=== PATIENT | female | born 1960 | race Caucasian/White ===

== ENCOUNTER 2017-01-07 18:21 | Emergency (ER) | payer OTHER ==
[2017-01-07 18:27] VITALS: RESP 16
--- NOTE | 2017-01-07 18:45 | CPEKG ---
Heart Rate: 69 RR Interval: 870 P-R Interval: 184 QRSD Interval: 72 QT Interval: 396 QTC Interval: 425 P [place]: 3 QRS [place]: 76 T Wave [place]: 59 EKG Severity - BORDERLINE ECG - EKG Impression: SINUS RHYTHM EKG Impression: BORDERLINE R WAVE PROGRESSION, ANTERIOR LEADS EKG Impression: BORDERLINE T ABNORMALITIES, ANTERIOR LEADS Electronically Signed By: Dee Johnson 09-Jan-2017 14:57:13
--- NOTE | 2017-01-07 18:45 | EDPHY ---
H & P Stated Complaint: HAVING TROUBLE WITH STRESS, HEART POUNDS Time Seen by Provider: 01/07/17 18:33 HPI/ROS: HPI: This is a 56-year-old female who presents with Chief Complaint: HAVING TROUBLE WITH STRESS, HEART POUNDS Location: Heart Quality: Pounding Duration: Several weeks to months Signs and Symptoms: No chest pain, no shortness of breath, no nausea, no vomiting, no diaphoresis, + palpitations, no lower extremity edema Timing: Intermittent, lasts for several minutes Severity: Moderate Context: Patient reports that she has a history of gastritis that is not managed with any medications only by food choices. She reports that while she was trying to use a pressure cooker this morning she became extremely stressed out and anxious, her heart started to pound, she felt cold and she was taking quick short breaths. She reports that this happened several times per week, lasting a few minutes, and self-resolving. She has no prior diagnosis of depression/anxiety. She works full-time and is caring for her sick sister; going to her home twice a day to cook and prepare meals. She admits that this is causing considerable stress in her life. She has not told her primary care provider, Dr. Perez about this or seen a counselor. She is resistant to any medications. Denies suicidal ideation/homicidal ideation/hallucinations. Denies recreational illegal drug use. No recent long distance travel. Modifying Factors: None Comment: ROS: see HPI Constitutional: No fever, no chills, no weight loss Eyes: No blurred vision Respiratory: No shortness of breath, no cough Cardiovascular: No chest pain Gastrointestinal: No nausea, no vomiting, no diarrhea Genitourinary: No dysuria Extremities: No myalgias Neurologic: No weakness, no numbness Skin: No rashes Hematologic: No bruising, no bleeding MEDICAL/SURGICAL/SOCIAL HISTORY: Medical history: Gastritis. Does not take any regular medications. Surgical history: Denies Social history: Employed full-time. CONSTITUTIONAL: Pleasant soft-spoken middle-aged white female, awake and alert , no obvious distress HEENT: Atraumatic and normocephalic, PERRL, EOMI. Tympanic membranes clear. Oropharynx clear, no exudate and moist pink mucosa. Airway patent. No lymphadenopathy. No meningismus. Cardiovascular: Normal S1/S2, regular rate, regular rhythm, without murmur rub or gallop. PULMONARY/CHEST: Symmetrical and nontender. Clear to auscultation bilaterally. Good air movement. No accessory muscle usage. ABDOMEN: Soft, nondistended, nontender, no rebound, no guarding, no peritoneal signs, no masses or organomegaly. No CVAT. EXTREMITIES: 2/2 pulses, strength 5/5, no deformities, no clubbing, no cyanosis or edema. NEUROLOGICAL: no focal neuro deficits. GCS 15. SKIN: Warm and dry, no erythema. no rash. Good capillary refill. Source: Patient Exam Limitations: No limitations - Personal History LMP (Females 10-55): Post Menopausal Current Tetanus Diphtheria and Acellular Pertussis (TDAP): Unsure - Medical/Surgical History Hx Asthma: No Hx Chronic Respiratory Disease: No Hx Diabetes: No Hx Cardiac Disease: No Hx Renal Disease: No Hx Cirrhosis: No Hx Alcoholism: No Hx HIV/AIDS: No Hx Splenectomy or Spleen Trauma: No Other PMH: BENIGN ARRHYTHMIA,GASTRITIS - Social History Smoking Status: Never smoked Constitutional: Initial Vital Signs Temperature (C) 36.9 C 01/07/17 18:22 Heart Rate 73 01/07/17 18:22 Respiratory Rate 16 01/07/17 18:22 Blood Pressure 123/59 H 01/07/17 18:22 O2 Sat (%) 99 01/07/17 18:22 O2 Delivery Mode Room Air Allergies/Adverse Reactions: Penicillins Allergy (Severe, Verified 01/07/17 18:28) Home Medications: Medication Instructions Recorded hydrOXYzine HCL [Vistaril 25MG] 25 mg PO Q6 PRN #10 tab 01/07/17 Medical Decision Making Procedures: 12 lead EKG: Indication: Chest pain Rhythm: Normal sinus rhythm, rate of 69 beats per minute [place]: Normal Intervals: Normal QRS: Normal ST segments: Normal T segments: Flattened INTERPRETATION: No acute ischemic changes. Compared with prior on 08/21/2010; no changes. The 12 lead EKG was interpreted by myself and with attending. ED Course/Re-evaluation: EKG, chest x-ray and labs ordered EKG shows no acute ischemic changes 1899: notified by nursing that patient has refused chest x-ray. No hypoxia/ wheezing/fever. 1927: Labs reviewed and grossly unremarkable; patient does not want to wait for thyroid results and advises will call ER tomorrow for results patient can follow up with primary care provider, behavioral health. no SI/HI Differential Diagnosis: Chest pain including but not limited to myocardial ischemia, pulmonary embolus, chest wall pain, pleural inflammation and pulmonary infectious causes. - Data Points Laboratory Results: Laboratory Results 01/07/17 18:59 01/07/17 18:59 01/07/17 01/07/17 01/07/17 18:59 18:59 18:59 WBC 5.55 10^3/uL 10^3/uL (3.80-9.50) RBC 4.32 10^6/uL 10^6/uL (4.18-5.33) Hgb 13.8 g/dL g/dL (12.6-16.3) Hct 39.6 % % (38.0-47.0) MCV 91.7 fL fL (81.5-99.8) MCH 31.9 pg pg (27.9-34.1) MCHC 34.8 g/dL g/dL (32.4-36.7) RDW 12.4 % % (11.5-15.2) Plt Count 191 10^3/uL 10^3/uL (150-400) MPV 10.8 fL fL (8.7-11.7) Neut % (Auto) 55.5 % % (39.3-74.2) Lymph % (Auto) 29.9 % % (15.0-45.0) [place] % (Auto) 7.9 % % (4.5-13.0) Eos % (Auto) 5.8 % % (0.6-7.6) Baso % (Auto) 0.7 % % (0.3-1.7) Nucleat RBC Rel Count 0.0 % % (0.0-0.2) Absolute Neuts (auto) 3.08 10^3/uL 10^3/uL (1.70-6.50) Absolute Lymphs (auto) 1.66 10^3/uL 10^3/uL (1.00-3.00) Absolute Monos (auto) 0.44 10^3/uL 10^3/uL (0.30-0.80) Absolute Eos (auto) 0.32 10^3/uL 10^3/uL (0.03-0.40) Absolute Basos (auto) 0.04 10^3/uL 10^3/uL (0.02-0.10) Absolute Nucleated RBC 0.00 10^3/uL 10^3/uL (0-0.01) Immature Gran % 0.2 % % (0.0-1.1) Immature Gran # 0.01 10^3/uL 10^3/uL (0.00-0.10) D-Dimer < 0.27 ug/mLFEU ug/mLFEU (0.00-0.50) Sodium 139 mEq/L mEq/L (134-144) Potassium 3.8 mEq/L mEq/L (3.5-5.2) Chloride 104 mEq/L mEq/L (97-110) Carbon Dioxide 21 mEq/l L mEq/l (22-31) Anion Gap 14 mEq/L mEq/L (8-16) BUN 12 mg/dL mg/dL (7-23) Creatinine 0.6 mg/dL mg/dL (0.6-1.0) Estimated GFR > 60 Glucose 77 mg/dL mg/dL (70-100) Calcium 9.5 mg/dL mg/dL (8.5-10.4) Magnesium 1.9 mg/dL mg/dL (1.6-2.3) Total Bilirubin 0.4 mg/dL mg/dL (0.1-1.4) Conjugated Bilirubin 0.1 mg/dL mg/dL (0.0-0.5) Unconjugated Bilirubin 0.3 mg/dL mg/dL (0.0-1.1) AST 27 IU/L IU/L (14-46) ALT 34 IU/L IU/L (9-52) Alkaline Phosphatase 70 IU/L IU/L (38-126) Troponin I < 0.012 ng/mL ng/mL (0.000-0.034) Total Protein 7.0 g/dL g/dL (6.3-8.2) Albumin 4.2 g/dL g/dL (3.5-5.0) Lipase 106 IU/L IU/L (23-300) Departure - Departure Disposition: Home, Routine, Self-Care Clinical Impression: Stress, Anxiety Condition: Good Instructions: Stress (ED), Generalized Anxiety Disorder (ED) Additional Instructions: Please try to reduce and eliminate stressors in life. Follow-up with a counselor to discuss stressors and learn coping mechanisms and behavior modification. You may use Vistaril, 1/2 to 1 tablet every 6 hours as needed for anxiety. Referrals: Marcelina Cummings MD [Primary Care Provider] - As per Instructions Annemarie Bustamante MD [Medical Doctor] - As per Instructions Prescriptions: hydrOXYzine HCL [Vistaril 25MG] 25 mg PO Q6 PRN #10 tab PRN Reason: Anxiety
--- NOTE | 2017-01-07 18:45 | CPEKG ---
Heart Rate: 69 RR Interval: 870 P-R Interval: 184 QRSD Interval: 72 QT Interval: 396 QTC Interval: 425 P [place]: 3 QRS [place]: 76 T Wave [place]: 59 EKG Severity - BORDERLINE ECG - EKG Impression: SINUS RHYTHM EKG Impression: BORDERLINE R WAVE PROGRESSION, ANTERIOR LEADS EKG Impression: BORDERLINE T ABNORMALITIES, ANTERIOR LEADS Electronically Signed By: Dee Johnson 09-Jan-2017 14:57:13
[2017-01-07 19:04] LABS: PLATELET COUNT 191 10^3/uL (150-400)
[2017-01-07 19:35] VITALS: BP 126/77; PULSE 72; O2SAT 96
[2017-01-07 20:11] VITALS: TEMP 98.1
== END 2017-01-07 20:09 | disposition home or self-care (01) ==
DX: F41.9 Anxiety disorder, unspecified (principal); F43.9 Reaction to severe stress, unspecified